=== PATIENT | female | born 1990 | race Caucasian/White ===

== ENCOUNTER 2019-09-25 13:58 | Emergency (ER) | payer MEDICAID ==
[~2019-09-25] VITALS: Ht 170.2 cm; Wt 61.2 kg
--- NOTE | 2019-09-25 14:03 | NUR ---
PT C/O L ANKLE PAIN SP SLIP AND FALL TODAY AOX3, ABLE TO SPEAK CLEAR AND COMPLETE SENTENCES PT DENIES SOB, NVD, FEVERS, CHILLS DENIES RECENT TRAVELS DENIES HX SURGERIES NOR TRAUMA TO SITE RA MONITORED ACCORDINGLY +PEDAL PULSES ON BOTH
--- NOTE | 2019-09-25 14:21 | NUR ---
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
[2019-09-25 15:19] VITALS: BP 110/75
--- NOTE | 2019-09-25 15:29 | NUR ---
Patient discharged to home in stable conditon. Written and verbal after care instructions given. Patient verbalizes understanding of instructions. GAIT TRAINING DONE W/ CRUTCHES
== END 2019-09-25 15:30 | disposition home or self-care (01) ==
LOC: ER 13:58
DX: S92.902A Unspecified fracture of left foot, initial encounter for closed fracture (principal); X50.1XXA Overexertion from prolonged static or awkward postures, initial encounter; Y93.89 Activity, other specified; Y92.89 Other specified places as the place of occurrence of the external cause; Y99.8 Other external cause status
CPT/HCPCS: 73610; 73630; A4663